=== PATIENT | female | born 1965 ===

== ENCOUNTER 2021-02-25 05:45 | Day surgery (SDC) | payer OTHER ==
[~2021-02-25 05:45] MED LIST: ATIVAN2 M1 PO; HYDROCHLOROTHIA25 MG PO; LIPIT PO; MIRAL PO; PROZAC20 MG PO; RESTORIL PO; TOPROL XL25 M1 PO; TRAZODONE HCL150 MG PO
[2021-02-25] MEDS ORDERED: COLACE100 MG PO (08:42)
[2021-02-25] MEDS ORDERED: NEURONTIN300 MG PO (08:42)
[2021-02-25] MEDS ORDERED: PERCOCET 5-3251 EACH PO (08:42)
== END 2021-02-25 14:25 | disposition home or self-care (01) ==
LOC: CIR.AMB 05:45
PROVIDERS: ATTEND Surgery
DX: K64.4 Residual hemorrhoidal skin tags (principal); K64.8 Other hemorrhoids; Z20.822 Contact with and (suspected) exposure to COVID-19

== ENCOUNTER 2021-03-03 11:13 | Emergency (ER) | payer OTHER ==
[~2021-03-03] VITALS: Ht 160 cm; Wt 99.8 kg
[~2021-03-03 11:13] MED LIST changes: +COLACE100 MG PO; +NEURONTIN300 MG PO; +PERCOCET 5-3251 EACH PO
[2021-03-03] MEDS ORDERED: METOPROLOL SUCC25 MG PO (11:29)
== END 2021-03-03 16:04 | disposition home or self-care (01) ==
LOC: ER 11:13
DX: K59.09 Other constipation (principal); K91.89 Other postprocedural complications and disorders of digestive system; Y84.8 Other medical procedures as the cause of abnormal reaction of the patient, or of later complication, without mention of misadventure at the time of the procedure